=== PATIENT | female | born 1970 | race Caucasian/White ===

== ENCOUNTER 2016-05-16 09:35 | Inpatient (IN) | payer BC ==
[~2016-05-16 09:35] MED LIST: ACETAMINOPHEN500 M4 PO; ACTOS; ACYCLOVIR400 MG PO; ALBUTEROL17 GM INH; ALLERGY25 M3 PO; ATIVAN0.5 M1; ATIVAN0.5 M1 PO; ATIVAN0.5 M1 SL; AUGMENTIN 875-1 EAC2 PO; BACTRIM DS TABL1 TAB PO; BENADRYL25 M3 PO; BYETTA10 MCG/0.0; BYSTOLIC5 M1 PO; CIPRO250 MG PO; COMPAZINE10 MG PO; CYCLOBENZAPRINE10 M1 PO; CYCLOBENZAPRINE5 M1 PO; DELTASONE20 MG PO; DOXY-LEMMON100 MG PO; DUETACT; DURAGESIC1 EAC1 TOP; ELAVIL25 MG PO; FENTANYL1 EAC2 TOP; GABAPENTIN400 M3 PO; GLIPIZIDE XL10 MG; GLUCOPHAGE1000 MG; GLUCOTROL XL5 MG; HUMALOG MI100 UNIT/3 SQ; HYDROMORPHONE HC2 M1 PO; IBUPROFEN200 M3 PO; IBUPROFEN600 M1 PO; IMODIUM A-D2 M3 PO; K EFFERVESCENT PO; KEFLEX500 MG PO; LANTUS SOLOSTAR3 ML SQ; LAXATIVE5 M4 PO; LEVAQUIN250 MG; LEVOTHYROXINE137 MCG; LEVOTHYROXINE200 MC4 PO; LEXAPRO10 MG; LORAZEPAM I2 MG/1 ML PO; MEGACE400 MG/11 PO; METHOCARBAMOL750 M1 PO; METOCLOPRAMIDE10 M2 PO; MIRALAX17 G2 PO; MOTRIN IB200 M1 PO; MS CONTIN15 M1 PO; NASONEX17 GM NS; NORCO 10/325 TA1 TAB PO; NORCO 5/325 TAB1 TAB PO; NOVOLOG FL100 UNIT/2 SC; NOVOLOG100 UNITS/ SC; OMEPRAZOLE MAGN20 M1 PO; PERCOCET 5/3251 TAB PO; PERCOCET 5MG/AP1 TAB PO; PHENERGAN W/CO120 ML PO; PHENERGAN25 MG PO; PREDNISONE20 MG PO; PRILOSEC40 MG PO; PROMETHAZINE HC25 M3 PO; PROVENTIL HFA6.7 G1 INH; PYRIDIUM200 MG PO; REMERON15 M1 PO; ROXICODONE5 M2 PO; SENOKOT-S TABL1 EACH PO; SYNTHROID137 MCG; SYNTHROID200 MCG PO; SYNTHROID300 MCG; SYNTHROID300 MCG PO; TOUJEO SOL300 UNIT/1; TOUJEO SOL300 UNIT/1 SC; TRAMADOL HCL50 MG PO; TRANSDERM-SCOP1 EACH TD; TRESIBA FL100 UNIT/1 SC; VALTREX500 MG PO; VITAMIN D50000 UNI2 PO; ZANTAC150 MG PO; ZOFRAN ODT4 MG PO; ZOFRAN4 M2 PO; ZYPREXA2.5 M1 PO; ZYPREXA5 M1 PO
[2016-05-16] MEDS ORDERED: PRILOSEC OTC20 M1 PO (09:52)
[2016-05-16] MEDS ORDERED: MIRALAX17 G2 PO (09:52)
[2016-05-16] MEDS ORDERED: SYNTHROID100 MC1 PO (09:52)
[2016-05-16] MEDS ORDERED: SENNA-S TABLET1 EAC3 PO (09:53)
[2016-05-16] MEDS ORDERED: ATIVAN0.5 M1 PO (09:53)
[2016-05-16] MEDS ORDERED: NEURONTIN300 M1 PO (09:53)
[2016-05-16] MEDS ORDERED: ZYPREXA2.5 M1 PO (09:53)
[2016-05-16] MEDS ORDERED: REMERON15 M1 PO (09:53)
[2016-05-16] MEDS ORDERED: COMPAZINE10 MG PO (09:53)
[2016-05-16] MEDS ORDERED: TRESIBA FL100 UNIT/1 SC (09:54)
[2016-05-16] MEDS ORDERED: NOVOLOG FL100 UNIT/2 SC ×3 (09:54→12:20)
[2016-05-16] MEDS ORDERED: PERCOCET 10-321 EACH PO (09:55)
[2016-05-16] MEDS ORDERED: BYSTOLIC5 M1 PO (09:55)
[2016-05-16] MEDS ORDERED: MEGACE400 MG/11 PO (09:55)
[2016-05-16] MEDS ORDERED: IBUPROFEN800 M1 PO (09:55)
[2016-05-16] MEDS ORDERED: MS CONTIN60 M1 PO (09:55)
[2016-05-16 10:17] LABS: HCT-HEMATOCRIT 24.6 % (34.0-49.0); HGB-HEMOGLOBIN 7.8 gm/dl (12.0-15.5); MCH (MEAN CORPUSCULAR HGB) 26.9 pg (28.0-32.0); MCHC MEAN CORPUSCULAR HGB CONC 31.7 % (32.0-36.0); MCV (MEAN CELL VOLUME) 84.8 fl (82.0-96.0); NEUTROPHIL-AUTOMATED 4.2 tho/cmm (1.6-8.0); PLATELET COUNT 145 tho/cmm (150-450); RED CELL DISTRIBUTION WIDTH 17.2 % (12.4-16.4)
[2016-05-16 10:35] LABS: ALB/GLOB RATIO 0.4 (0.8-2.0); ALBUMIN 2.3 g/dl (3.5-5.0); ALT/SGPT 14 U/L (12-78); ANION GAP 14 mmol/L (0-20); AST/SGOT 84 U/L (10-40); BILIRUBIN,TOTAL 0.3 mg/dl (0-1.5); BLOOD UREA NITROGEN 10 mg/dl (6-24); CALCIUM 8.7 mg/dl (8.5-10.5); CARBON DIOXIDE-VENOUS 29 mmol/L (22-32); CHLORIDE 99 mmol/l (96-110); CREATININE 0.46 mg/dl (0.50-1.10); GLUCOSE 196 mg/dL (70-110); SODIUM 138 mmol/L (135-145); eGFR VALUE FOR BLACK >90 mL/Min
[2016-05-16 10:45] LABS: ALKALINE PHOSPHATASE 980 U/L (33-138)
[2016-05-16 11:43] LABS: BAND % 4 % (0-20); BAND ABSOLUTE COUNT 0.2 tho/cmm (0-2.0); EOSINOPHIL % 8 % (0-7)
[2016-05-16 11:50] LABS: URINE APPEARANCE CLEAR; URINE BILIRUBIN NEGATIVE (NEG); URINE BLOOD NEGATIVE (NEG); URINE COLOR YELLOW; URINE GLUCOSE (UA) NEGATIVE (NEG); URINE KETONE NEGATIVE (NEG); URINE LEUKOCYTE ESTERASE POSITIVE (NEG); URINE NITRITE NEGATIVE (NEG); URINE PROTEIN SMALL (NEG)
[2016-05-16] MEDS ORDERED: OLANZAPINE10 M1 PO (12:24)
[2016-05-16] MEDS ORDERED: LEVOTHYROXINE200 MC4 PO (12:26)
[2016-05-17 04:21] LABS: HGB-HEMOGLOBIN 6.8 gm/dl (12.0-15.5); MCH (MEAN CORPUSCULAR HGB) 26.7 pg (28.0-32.0); MCV (MEAN CELL VOLUME) 85.1 fl (82.0-96.0); MEAN PLATELET VOLUME 8.6 cmc (9.4-12.4); NEUTROPHIL-AUTOMATED 2.9 tho/cmm (1.6-8.0); PLATELET COUNT 113 tho/cmm (150-450); RED BLOOD COUNT 2.55 mil/cmm (4.00-5.20); RED CELL DISTRIBUTION WIDTH 17.3 % (12.4-16.4); WHITE BLOOD COUNT 3.5 tho/cmm (4.0-10.0)
[2016-05-17 04:24] LABS: HCT-HEMATOCRIT 21.7 % (34.0-49.0); IMMATURE GRANULOCYTES ABSOLUTE 0.41 tho/cmm (0-0.03); IMMATURE GRANULOCYTES PERCENT 11.6 % (0-0.3); LYMPH ABSOLUTE COUNT 0.1 tho/cmm (0.8-4.5); MCHC MEAN CORPUSCULAR HGB CONC 31.3 % (32.0-36.0); MONO % 1.4 % (0-12); MONOCYTE ABSOLUTE COUNT 0.1 tho/cmm (0.0-1.2); NEUTROPHIL ABSOLUTE COUNT 2.9 tho/cmm (1.6-8.0)
[2016-05-17 04:38] LABS: ALB/GLOB RATIO 0.4 (0.8-2.0); ALT/SGPT 13 U/L (12-78); ANION GAP 10 mmol/L (0-20); AST/SGOT 68 U/L (10-40); BILIRUBIN,TOTAL 0.3 mg/dl (0-1.5); BLOOD UREA NITROGEN 5 mg/dl (6-24); CALCIUM 8.2 mg/dl (8.5-10.5); CARBON DIOXIDE-VENOUS 30 mmol/L (22-32); CHLORIDE 102 mmol/l (96-110); CREATININE 0.38 mg/dl (0.50-1.10); GLUCOSE 170 mg/dL (70-110); POTASSIUM 3.6 mmol/L (3.7-5.1); SODIUM 138 mmol/L (135-145); eGFR VALUE FOR BLACK >90 mL/Min
[2016-05-17 05:03] LABS: ALKALINE PHOSPHATASE 915 U/L (33-138)
[2016-05-18 12:13] LABS: MCV (MEAN CELL VOLUME) 84.5 fl (82.0-96.0); MEAN PLATELET VOLUME 9.8 cmc (9.4-12.4); NEUTROPHIL-AUTOMATED 2.2 tho/cmm (1.6-8.0); PLATELET COUNT 120 tho/cmm (150-450); RED BLOOD COUNT 3.35 mil/cmm (4.00-5.20); RED CELL DISTRIBUTION WIDTH 16.1 % (12.4-16.4); WHITE BLOOD COUNT 2.7 tho/cmm (4.0-10.0)
[2016-05-18 12:19] LABS: EOS % 0.4 % (0-7); HCT-HEMATOCRIT 28.3 % (34.0-49.0); HGB-HEMOGLOBIN 9.3 gm/dl (12.0-15.5); IMMATURE GRANULOCYTES ABSOLUTE 0.26 tho/cmm (0-0.03); IMMATURE GRANULOCYTES PERCENT 9.6 % (0-0.3); LYMPH % 5.6 % (20-45); LYMPH ABSOLUTE COUNT 0.2 tho/cmm (0.8-4.5); MCH (MEAN CORPUSCULAR HGB) 27.7 pg (28.0-32.0); MCHC MEAN CORPUSCULAR HGB CONC 32.9 % (32.0-36.0); MONO % 3.7 % (0-12); MONOCYTE ABSOLUTE COUNT 0.1 tho/cmm (0.0-1.2); NEUTROPHIL ABSOLUTE COUNT 2.2 tho/cmm (1.6-8.0); NEUTROPHILS % 80.7 % (40-80)
[2016-05-19 04:42] LABS: HGB-HEMOGLOBIN 8.7 gm/dl (12.0-15.5); PLATELET COUNT 102 tho/cmm (150-450)
[2016-05-21 06:26] LABS: HGB-HEMOGLOBIN 8.9 gm/dl (12.0-15.5); PLATELET COUNT 97 tho/cmm (150-450)
[2016-05-21] MEDS ORDERED: ATIVAN2 MG/1 ML PO/SL (12:55)
[2016-05-21] MEDS ORDERED: ATIVAN IVP (12:56)
== END 2016-05-21 14:15 | disposition hospice, inpatient (51) | DRG 948 ==
LOC: EDMED 09:35 → EMR2 15:11 → 5WF 15:15
PROVIDERS: Emergency Medicine; Physician Assistant Medical; ADMIT Internal Medicine Medical Oncology
PROC: 30233N1 Transfusion of Nonautologous Red Blood Cells into Peripheral Vein, Percutaneous Approach (ICD-10-PCS; principal; 2016-05-20)
DX: G89.3 Neoplasm related pain (acute) (chronic) (principal); C77.2 Secondary and unspecified malignant neoplasm of intra-abdominal lymph nodes; C79.51 Secondary malignant neoplasm of bone; D64.81 Anemia due to antineoplastic chemotherapy; E66.01 Morbid (severe) obesity due to excess calories; C54.1 Malignant neoplasm of endometrium; F32.9 Major depressive disorder, single episode, unspecified; E78.5 Hyperlipidemia, unspecified; E11.9 Type 2 diabetes mellitus without complications; E03.9 Hypothyroidism, unspecified; Z51.5 Encounter for palliative care; G89.29 Other chronic pain; Z85.820 Personal history of malignant melanoma of skin; F41.9 Anxiety disorder, unspecified; Z68.36 Body mass index [BMI] 36.0-36.9, adult; K59.00 Constipation, unspecified; R11.0 Nausea; R53.81 Other malaise; G62.9 Polyneuropathy, unspecified; Z79.4 Long term (current) use of insulin; Z66 Do not resuscitate
CPT/HCPCS: A9577; J0780; J1100; J1447; J1650; J1815; J1885; J2060; J2270; J2405; J7030; P9016